=== PATIENT | female | born 1985 | race Caucasian/White ===

== ENCOUNTER 2019-03-17 18:45 | Emergency (ER) | payer OTHER ==
[~2019-03-17] VITALS: Ht 177.8 cm; Wt 93.0 kg
[2019-03-17] MEDS ORDERED: AUMENTIN (19:17)
== END 2019-03-18 03:42 | disposition home or self-care (01) ==
LOC: ER 18:45
DX: J02.8 Acute pharyngitis due to other specified organisms (principal); R50.9 Fever, unspecified